=== PATIENT | male | born 1970 | race African-American/Black ===

== ENCOUNTER 2017-04-07 15:10 | Inpatient (IN) | payer MEDICAID ==
[~2017-04-07] VITALS: Ht 175.3 cm; Wt 86.2 kg
--- NOTE | ~2017-04-07 | PA ---
Unit #: [id number] #: [id number] Patient: [facility]BERTO [facility]NAIR [id number] [facility] [address] [place] [address] [id number] I MR#: [id number] NAME: ALBERTO MCNAIR ROOM: P182 Age: 46 Sex: M Admission Date: 04/07/2017 : 1970 Date of Assessment: 04/07/2017 Attending Physician: Kim Robles M.D. Admitting Physician: Kim Robles M.D. Primary Care Physician: Primary Care Physician No PSYCHIATRIC ASSESSMENT DATE OF SERVICE 04/07/2017. IDENTIFYING DATA Mr. Mcnair is a 46-year-old single male, who is a resident of [place], [place], and was self-referred to the hospital on a voluntary basis. CHIEF COMPLAINT "I need assessment due to daily alcohol and heroin use." HISTORY OF PRESENT ILLNESS Mr. Mcnair is a 46-year-old male with history of substance abuse and dependence, who came to the hospital stating that he has been using alcohol and heroin on daily basis and had a CIWA of 12 and COWS of 14 indicating significant withdrawals from both opioids and alcohol and he stated that he has been using 1 to 2 g of heroin on daily basis and has been drinking approximately 2 pints of whiskey on daily basis and denies any suicidal or homicidal ideation, but stated that he has been using drugs and he wants to get clean and go through detox. Reports that he is unemployed and living in the streets and has poor social support system and has had significant consequences because of his addiction. He does report depression, anxiety, irritability, restlessness, feelings of hopelessness and helplessness, but denies any suicidal ideations, intent, or plan. SUBSTANCE ABUSE HISTORY The patient reports history of alcohol and opioid abuse and dependence, stating that he has been using 1 to 2 g of heroin on daily basis via IV and snorting and also has been using 2 pints of whiskey on daily basis. PAST PSYCHIATRIC HISTORY The patient has had history of [facility] dependency [facility] at [facility], and review of the medical records indicate currently he is not active in any treatment program, and is not seeing a psychiatrist, and is not taking any psychotropic medications. PAST MEDICAL HISTORY No acute or chronic medical illnesses. ALLERGIES No known medication allergies. Unit #: [id number] #: [id number] Patient: ALBERTO MCNAIR CURRENT MEDICATIONS None. PERSONAL AND SOCIAL HISTORY A 46-year-old male, who reports that he is single, unemployed, and essentially homeless and has poor social support system. MENTAL STATUS EXAMINATION Middle-aged male who was casually dressed with fair personal hygiene, appears to be in no acute distress or discomfort. He was awake and alert on interaction with intact orientation. His mood was anxious and depressed with a congruent affect. His speech was slow and goal directed. His thought processes were disorganized with some looseness of associations and flight of ideas. He denies any suicidal or homicidal ideations and also denies any auditory or visual hallucinations. His insight and judgment remain significantly impaired. DIAGNOSTIC IMPRESSION Psychiatric: Alcohol dependence, moderate and acute withdrawals; opioid dependence, moderate and acute withdrawals; alcohol-induced mood disorder. Medical: None. Stressors: Moderate psychosocial stressors. TREATMENT PLAN 1. The patient has presented with history of mood disorder and substance abuse and dependence and has been decompensating and will need inpatient hospitalization for safety and stabilization. We will start him back on his home medications. We will adjust the medications and monitor response. 2. Supportive therapy was provided to the patient. 3. Safe, structured, and nourishing environment will be provided. ESTIMATED LENGTH OF STAY 5 to 7 days. ABILITY TO HELP SELF Limited. WILLINGNESS TO HELP SELF The patient appears to be willing to help self. STRENGTHS 1. Communicative. 2. Cooperative. PROBLEMS 1. Chronic dysphoric symptoms. 2. Poor social support system. DISCHARGE CRITERIA This will be contingent upon the patient's ability to show resolution of his depression and anxiety and his ability to stay safe to himself, particularly after discharge from the hospital. Dictated by... Kim Robles M.D. IAA/modl Unit #: [id number] #: [id number] Patient: ALBERTO MCNAIR TD: 04/08/2017 07:23 JOB #: [id number] PSYCHIATRIC ASSESSMENT Page 1 of 1 X Kim Robles MD X PSYCHIATRIC ASSESSMENT
--- NOTE | ~2017-04-07 | PN ---
Unit #: [id number] #: [id number] Patient: ALBERTO MCNAIR [id number] [facility] [address] [place] [address] [id number] MR#: [id number] NAME: ALBERTO MCNAIR ROOM: [facility] Age: 46 Sex: M Admission Date: 04/07/2017 : 1970 Attending Physician: Kim Robles M.D. Admitting Physician: Kim Robles M.D. Primary Care Physician: Primary Care Physician Maria Esther AUGUSTE PROGRESS NOTES DATE OF SERVICE 04/09/2017 DISCUSSION Mr. Mcnair is a 46-year-old male who was seen today. Chart was reviewed and case was discussed with staff. He remains anxious, withdrawn, and seclusive to himself and does appear to be in some distress or discomfort as he goes through detox. Meanwhile, the patient has been taking the medications and tolerating them fairly well with no reported side effects. MENTAL STATUS EXAMINATION Middle-aged male who is casually dressed with fair personal hygiene, appears to be in slight distress or discomfort. He was awake and alert on interaction with intact orientation. His mood is anxious and depressed with congruent affect. His speech is slow and restricted in content. He denies any suicidal or homicidal ideations and also denies any auditory or visual hallucinations. His insight and judgment remain slightly impaired. TREATMENT PLAN 1. We will continue him on his current medications and treatment protocol. We will monitor his response and make further adjustments as needed. 2. We will continue to follow up. Dictated by... Lance Samson/mariana TD: 04/09/2017 11:01 JOB #: [id number] Unit #: [id number] #: [id number] Patient: ALBERTO MCNAIR PROGRESS NOTES Page 1 of 1 X Kim Robles MD PROGRESS NOTE
--- NOTE | ~2017-04-07 | PN ---
Unit #: [id number] #: [id number] Patient: ALBERTO MCNAIR [id number] [facility] [address] [place] [address] [id number] MR#: [id number] NAME: ALBERTO MCNAIR ROOM: [facility] Age: 46 Sex: M Admission Date: 04/07/2017 : 1970 Attending Physician: Kim Robles M.D. Admitting Physician: Kim Robles M.D. Primary Care Physician: Primary Care Physician Maria Esther CARDOSO NOTES DATE April 10, 2017 DISCUSSION Mr. Mcnair is a 46-year-old white male, who was seen today and chart was reviewed and the case was discussed with the staff. He has been anxious, withdrawn, and seclusive to himself and does appear to be in some distress and discomfort, as he goes through detox. Meanwhile, he has been taking the medications and tolerating them fairly well with no reported side effects. MENTAL STATUS EXAMINATION Middle-aged white male, who was casually dressed with fair personal hygiene and appears to be in no acute distress or discomfort. He was awake and alert on interaction with intact orientation. His mood is anxious with a congruent affect. He speech is slow and goal-directed. He denies any suicidal or homicidal ideations. His insight and judgment remain slightly impaired. TREATMENT PLAN 1. We will continue him on his current medications and treatment protocol, and will monitor his response to the medications, and make further adjustments as needed. 2. We will continue to followup. Dictated by... Lance Samson/anuradha TD: 04/10/2017 10:59 JOB #: [id number] Unit #: [id number] #: [id number] Patient: ALBERTO MCNAIR PROGRESS NOTES Page 1 of 1 X Kim Robles MD PROGRESS NOTE
--- NOTE | ~2017-04-07 | HP ---
Unit #: [id number] #: [id number] Patient: ALBERTO MCNAIR [id number] [facility] [address] [place] [address] [id number] MR#: [id number] NAME: ALBERTO MCNAIR ROOM: P182 Age: 46 Sex: M Admission Date: 04/07/2017 : 1970 Attending Physician: Kim Robles M.D. Admitting Physician: Kim Robles M.D. Primary Care Physician: Primary Care Physician No HISTORY AND PHYSICAL HISTORY OF PRESENT ILLNESS Alberto is a 46 year old admitted to [facility] because of his drug use. He shoots heroin. PAST MEDICAL HISTORY 1. Long history of illicit substance abuse to include IV heroin. 2. History of alcohol abuse. PAST SURGICAL HISTORY Nothing reported. ALLERGIES No known drug allergies. SOCIAL HISTORY Smokes 1 pack per day. Drinks alcohol frequently to excess and has a history of illicit drug use to include IV heroin. FAMILY HISTORY Medically noncontributory. REVIEW OF SYSTEMS CONSTITUTIONAL: No fever or chills. HEENT: Denies any sore throat, ear pain or runny nose. CARDIOVASCULAR: Denies chest pain, irregular heart rhythm or palpitations. CHEST: Denies shortness of breath or cough. No hemoptysis. GASTROINTESTINAL: He reports significant nausea and vomiting over the past 6 to 8 hours. He did refuse an IM injection of Phenergan. ENDOCRINE: Denies history of increased thirst or urination. No recent significant weight loss or gain. GENITOURINARY: Denies dysuria, frequency, or hematuria. SKIN: Denies any rashes. HEMATOLOGIC: Denies history of increased bleeding or bruising. MUSCULOSKELETAL: Denies any hot, swollen joints. No generalized muscle pain. NEUROLOGIC: Denies problems with vision or speech. No frequent, severe headaches. No numbness, tingling or weakness in any extremities. Denies loss of bladder or bowel control. CURRENT MEDICATIONS Detox protocol. PHYSICAL EXAMINATION Unit #: [id number] #: [id number] Patient: ALBERTO MCNAIR GENERAL: Alert, thin, appears acutely ill in bed. Otherwise, no apparent distress. VITAL SIGNS: Blood pressure 156/100, heart rate 70, respirations 16, temperature 98.6. WEIGHT: 190. HEIGHT: 5 feet 9 inches. SKIN: Warm and dry without rash or lesion. HEENT: Normocephalic. TMs not viewed. Oral and nasal passages clear. Conjunctivae clear. PERRLA. EOMs intact. NECK: Supple without lymphadenopathy or thyromegaly. HEART: Regular rate and rhythm without murmur. LUNGS: Clear. ABDOMEN: Soft, nontender. : Not done. EXTREMITIES: No evidence of cyanosis, clubbing or edema. Moves all without focal deficit. NEUROLOGICAL: Unable to complete extended exam. He does move all extremities without focal deficit. Hand java integration developer is equal and gait is normal. He is alert and oriented times three. IMPRESSION 1. Psychiatric admission. 2. Illicit drug use and alcohol abuse. Patient is detoxing. RECOMMENDATIONS PSYCHIATRIC: Per psychiatrist. MEDICAL: 1. See no contraindication to participate in facility's activities. 2. Detox per protocol. He has agreed to take the IM injection of Phenergan. Stat ammonia, BMP, amylase and lipase have been ordered. Full liquid diet and advance as tolerated. MEDICAL PROGNOSIS Good. MEDICAL CONDITION Stable. Dictated by... Jermaine GoncalvesARafael-Dulce. for Lance Suárez/liza TD: 04/08/2017 17:57 JOB #: [id number] Unit #: [id number] #: [id number] Patient: ALBERTO MCNAIR HISTORY AND PHYSICAL Page 1 of 1 X Lucía Alaniz X HISTORY AND PHYSICAL
--- NOTE | ~2017-04-07 | DS ---
Unit #: [id number] #: [id number] Patient: ALBERTO MCNAIR [id number] [facility] [place] [place] [address] [id number] MR#: [id number] NAME: ALBERTO MCNAIR ROOM: [facility] Age: 46 Sex: M Admission Date: 04/07/2017 : 1970 Discharge Date: 04/11/2017 Attending Physician: Kim Robles M.D. Primary Care Physician: Primary Care Physician No DISCHARGE SUMMARY IDENTIFYING DATA Mr. Mcnair is a 46-year-old single male who is a resident of [place], [place] and was self-referred to the hospital on a voluntary basis. HISTORY OF PRESENT ILLNESS Please see initial psychiatric evaluation. PAST PSYCHIATRIC HISTORY Please see initial psychiatric evaluation. PAST MEDICAL HISTORY Please see initial psychiatric evaluation. HOSPITAL COURSE The patient was admitted to the adult chemical dependence unit at [facility] miranda Anderson and was oriented to the hospital environment. Routine p.r.n. medications were initiated and he was started on the detox protocol and was closely monitored. He was seen to be polite and pleasant and cooperative and compliant with treatment recommendations and has been taking the medications regularly and was tolerating them fairly well and was able to show a fairly decent and therapeutic response to treatment interventions and was willing to continue treatment on outpatient basis and as such it was decided that he will be discharged home. Will continue with treatment on outpatient basis. DISCHARGE DIAGNOSES PSYCHIATRIC: 1. Alcohol dependence, moderate, in acute withdrawal. 2. Opiate dependence, moderate, in acute withdrawal. 3. Alcohol induced mood disorder. MEDICAL: None. STRESSORS: Mild psychosocial stressors. DISCHARGE MEDICATIONS None. CONDITION AT DISCHARGE Stable. Unit #: [id number] #: [id number] Patient: ALBERTO MCNAIR PROGNOSIS Fair. Dictated by... Lance Samson/liza TD: 04/11/2017 18:38 JOB #: [id number] DISCHARGE SUMMARY Page 1 of 1 X Kim Robles MD X DISCHARGE SUMMARY
--- NOTE | ~2017-04-07 | PN ---
Unit #: [id number] #: [id number] Patient: ALBRETO MCNAIR [id number] [facility] [address] [place] [address] [id number] MR#: [id number] NAME: ALBERTO MCNAIR ROOM: [facility] Age: 46 Sex: M Admission Date: 04/07/2017 : 1970 Attending Physician: Kim Robles M.D. Admitting Physician: Kim Robles M.D. Primary Care Physician: Primary Care Physician Maria Esther AUGUSTE PROGRESS NOTES DATE 04/08/2017 DISCUSSION Mr. Mcnair is a 46-year-old, male with substance abuse and mood disorder who was seen today and chart was reviewed and case was discussed with the staff. He was seen to be anxious, withdrawn having some distress and discomfort and was rather seclusive to himself. Meanwhile, he has been cooperative with treatment recommendations. He has been taking medications and tolerating them fairly well with no reported side effects. MENTAL STATUS EXAM Middle-aged male who was casually dressed with fair personal hygiene, appears to be in no acute distress or discomfort. He was awake and alert on interaction with intact orientation. His mood was anxious with congruent affect. He denies any suicidal or homicidal ideation. His insight and judgement remains slightly impaired. TREATMENT PLAN 1. We will continue him on his current medications and treatment protocol. We will monitor his response to the medication and make further adjustments as needed. 2. We will continue to follow up. Dictated by... Lance Samson/sudheer TD: 04/08/2017 22:25 JOB #: [id number] Unit #: [id number] #: [id number] Patient: ALBERTO MCNAIR PROGRESS NOTES Page 1 of 1 X Kim Robles MD PROGRESS NOTE
[2017-04-08 09:53] LABS: BASOPHIL% 0.4 % (0-2.5); EOSINOPHIL# 0.1 X10e3 (0-0.7); EOSINOPHIL% 0.8 % (0.0-7.0); HEMATOCRIT 41.6 % (38.0-50.0); LYMPHOCYTE# 1.4 X10e3 (1.0-3.5); LYMPHOCYTE% 14.8 % (17.0-45.0); MEAN CELL VOLUME 88.7 FL (83-96); MEAN CORPUSCULAR HEMOGLOBIN 29.9 PG (28-34); MEAN CORPUSCULAR HGB CONC 33.7 g/dL (30-36); MEAN PLATELET VOLUME 8.1 FL (6.5-11.5); MONOCYTE# 0.5 X10e3 (0-1.0); MONOCYTE% 4.9 % (3.0-12.0); NEUTROPHIL# 7.5 X10e3 (1.5-7.1); NEUTROPHIL% 79.1 % (40-75); PLATELET COUNT 245 X10e3 (140-420); RED BLOOD COUNT 4.69 X10e (3.90-5.60); RED CELL DISTRIBUTION WIDTH 14.1 % (11.0-15.5); WHITE BLOOD COUNT 9.4 X10e3 (4.0-10.5)
[2017-04-08 09:58] LABS: DIFF IND NO
[2017-04-08 10:04] LABS: ALBUMIN SERUM 3.9 g/dL (3.5-5.0); BUN/CREATININE RATIO 13.33; CALCIUM SERUM 9.4 mg/dL (8.4-10.2); CREATININE SERUM 0.9 mg/dL (0.6-1.4); GLOM FILT RATE Estimated 117.5 mL/min (>60); POTASSIUM 4.3 mmol/L (3.5-5.1); PROTEIN TOTAL SERUM 6.6 g/dL (6.0-8.3)
[2017-04-08 19:29] LABS: BUN/CREATININE RATIO 16.66; CALCIUM SERUM 9.9 mg/dL (8.4-10.2); CREATININE SERUM 0.9 mg/dL (0.6-1.4); GLOM FILT RATE Estimated 117.5 mL/min (>60); POTASSIUM 4.4 mmol/L (3.5-5.1)
[2017-04-08 22:02] LABS: AMYLASE 29 U/L (0-46); LIPASE 18 U/L (22-51)
== END 2017-04-11 10:55 | disposition home or self-care (01) | DRG 897 ==
LOC: P1E 17:44
PROVIDERS: Physician Assistant Medical; Psychiatry & Neurology Psychiatry
PROC: HZ2ZZZZ Detoxification Services for Substance Abuse Treatment (ICD-10-PCS; principal; 2017-04-07)
DX: F10.230 Alcohol dependence with withdrawal, uncomplicated (principal); F11.23 Opioid dependence with withdrawal; F10.24 Alcohol dependence with alcohol-induced mood disorder; Z59.0 Homelessness; F17.200 Nicotine dependence, unspecified, uncomplicated
CPT/HCPCS: 80048; 80053; 82140; 82150; 83690; 85025; 86592; J2405; J2550

== ENCOUNTER 2017-04-08 21:16 | Emergency (ER) | payer MEDICAID ==
[~2017-04-08] VITALS: Ht 172.7 cm; Wt 90.7 kg
--- NOTE | ~2017-04-08 | CR72 ---
[facility] A Service of [facility] & [facility] RADIOLOGY TEXT RESULTS PATIENT: ALBERTO GANN LOCATION: [facility] : [birth year] UNIT #: [id number] AGE: [address]: Syed Paul MD SEX: M ORDER DR: [id number] [facility] [address] [place], [place] [address] [id number] MR#: [id number] Acc #: [id number] NAME: ALBERTO GANN : 1970 SEX: M STUDY DATE/TIME: 04/08/2017 21:57 UNIT: [facility] ROOM: STUDY DESCRIPTION: CR Chest Single View Portable Attending Physician: Syed Paul M.D. Ordering Physician: Syed Paul M.D. Primary Care Physician: No Primary Care Physician MEDICAL IMAGING REPORT This report is preliminary unless electronic signature is present EXAM Portable chest x-ray, 04/08/2017. HISTORY Week, nausea, vomiting, opiate withdrawal. TECHNIQUE AP radiographs of the chest are presented. COMPARISON 07/04/2016 FINDINGS Heart and mediastinum within normal limits of size and contour. The lungs are well inflated. There is no evidence of acute pulmonary disease, pleural effusion, or pneumothorax. There is no suspicious nodule. The bony structures are unremarkable. Dictated by... Alan Palmer M.D. THIS IS AN ELECTRONICALLY VERIFIED REPORT Alan Palmer M.D. at 04/09/2017 7:55 PM JAYDEN/cooper TD: 04/09/2017 01:21 JOB #: [id number] MEDICAL IMAGING REPORT Page 1 of 1 COPY
[2017-04-08 23:16] LABS: BASOPHIL% 0.1 % (0-2.5); HEMATOCRIT 50.1 % (38.0-50.0); LYMPHOCYTE% 6.5 % (17.0-45.0); MEAN CELL VOLUME 89.3 FL (83-96); MEAN CORPUSCULAR HEMOGLOBIN 29.3 PG (28-34); MEAN CORPUSCULAR HGB CONC 32.8 g/dL (30-36); MEAN PLATELET VOLUME 7.9 FL (6.5-11.5); MONOCYTE# 0.6 X10e3 (0-1.0); MONOCYTE% 3.6 % (3.0-12.0); NEUTROPHIL# 13.8 X10e3 (1.5-7.1); NEUTROPHIL% 89.8 % (40-75); PLATELET COUNT 272 X10e3 (140-420); RED BLOOD COUNT 5.61 X10e (3.90-5.60); RED CELL DISTRIBUTION WIDTH 14.2 % (11.0-15.5)
[2017-04-08 23:17] LABS: DIFF IND YES; HEMOGLOBIN 16.4 gm/dL (13.0-16.0); WHITE BLOOD COUNT 15.4 X10e3 (4.0-10.5)
[2017-04-08 23:24] LABS: INR 1.1; PARTIAL THROMBOPLASTIN TIME 26.4 SECONDS (23.5-31.3); PROTHROMBIN TIME (PATIENT) 11.7 SECONDS (10.0-11.7)
[2017-04-08 23:37] LABS: ALBUMIN SERUM 5.1 g/dL (3.5-5.0); BILIRUBIN, DIRECT 0.2 mg/dL (0.0-0.2); BILIRUBIN,TOTAL 1.2 mg/dL (0.2-2.0); CALCIUM SERUM 10.2 mg/dL (8.4-10.2); GLOM FILT RATE Estimated 103.4 mL/min (>60); POTASSIUM 3.7 mmol/L (3.5-5.1)
[2017-04-09 00:08] LABS: PLATELET ESTIMATE NORMAL (NORMAL)
[2017-04-09 00:09] LABS: RBC NORMAL YES
== END 2017-04-09 00:56 | disposition short-term general hospital (02) ==
LOC: CED 21:16
PROVIDERS: Emergency Medicine
DX: F11.23 Opioid dependence with withdrawal (principal); E86.0 Dehydration
CPT/HCPCS: 36415; 71010; 80048; 80076; 85025; 85610; 85730; 96374; 96375; 99285; C9113; J2765